=== PATIENT | female | born 1935 | race Caucasian/White ===

== ENCOUNTER 2016-10-08 12:20 | Emergency (ER) | payer OTHER ==
[~2016-10-08] VITALS: Ht 165.1 cm; Wt 59.9 kg
[~2016-10-08 12:20] MED LIST: ALBUTEROL2.5 MG/31 INH; AUGMENTIN250 MG/5 M PO; DOMPERIDONE PO; LEVOTHYROXIN0.025 MG PO; MIRALAX17 GM PO; MUCINEX600 MG PO; MYRBETRIQ25 MG PO; NORVASC5 MG PO; PRISTIQ50 MG PO; PROTONIX40 M1 PO; RESTORIL30 MG PO; SENNA LAX8.6 MG PO; SYMBICORT160 MCG/4. INH; TOPROL XL50 MG PO; TYLENOL325 MG PO; ZOCOR 10 MG TAB10 MG PO
[2016-10-08 12:33] LABS: URINE BILIRUBIN NEGATIVE (Negative); URINE BLOOD 1+ (Negative); URINE COLOR YELLOW; URINE GLUCOSE-RANDOM* NEGATIVE (Negative); URINE KETONES NEGATIVE (Negative); URINE NITRITE NEGATIVE (Negative); URINE PROTEIN (DIPSTICK) NEGATIVE (Negative); URINE SPECIFIC GRAVITY <= 1.005 (1.003-1.035); URINE UROBILINOGEN 0.2 E.U./dl (0.2-1.0)
[2016-10-08 13:01] LABS: CASTS None Seen /LPF (None Seen); SQUAMOUS 0-3 Few /LPF (0-3)
[2016-10-08 13:02] LABS: BACTERIA 1-9 Few /HPF (None Seen); CRYSTALS None Seen /LPF (None Seen); URINE RBC 0-2 Rare /HPF (0-2); URINE WBC 6-15 Few /HPF (0-5)
[2016-10-08] MEDS ORDERED: HYDREA 500 MG500 M1 PO (13:54)
[2016-10-08] MEDS ORDERED: PREDNISONE 10 M10 MG (13:56)
[2016-10-08] MEDS ORDERED: CEFDINIR300 MG PO (13:57)
[2016-10-08] MEDS ORDERED: BACTRIM DS TAB1 EACH PO (14:12)
[2016-10-08] MEDS ORDERED: PHENAZOPYRIDIN200 M2 PO (14:12)
== END 2016-10-08 14:56 | disposition home or self-care (01) ==
LOC: ER 12:20
PROVIDERS: Nurse Practitioner
DX: N39.0 Urinary tract infection, site not specified (principal); I10 Essential (primary) hypertension; K31.84 Gastroparesis; Z90.49 Acquired absence of other specified parts of digestive tract; Z85.3 Personal history of malignant neoplasm of breast; Z90.710 Acquired absence of both cervix and uterus; Z88.8 Allergy status to other drugs, medicaments and biological substances; Z91.041 Radiographic dye allergy status

== ENCOUNTER → 2017-06-29 | Outpatient (CLI) | payer OTHER ==
[~2017-06-29] MED LIST changes: +BACTRIM DS TAB1 EACH PO; +CEFDINIR300 MG PO; +HYDREA 500 MG500 M1 PO; +PHENAZOPYRIDIN200 M2 PO; +PREDNISONE 10 M10 MG
== END ==
LOC: CAT 09:41
DX: J47.9 Bronchiectasis, uncomplicated (principal); I70.0 Atherosclerosis of aorta